=== PATIENT | female | born 1940 | race Caucasian/White ===

== ENCOUNTER 2017-01-30 14:39 | Emergency (ER) | payer OTHER ==
[~2017-01-30] VITALS: Ht 160 cm; Wt 111.4 kg
[~2017-01-30 14:39] MED LIST: ASPIRIN81 M2 PO; BENAZEPRIL HCL; GLYBURIDE PO; HYDROCHLOROTH12.5 M3 PO; LOVASTATIN; NOVOLIN N100 UNITS/ SC
[2017-01-30] MEDS ORDERED: FUROSEMIDE20 MG PO (15:11)
[2017-01-30] MEDS ORDERED: BENAZEPRIL HCL40 MG PO (15:12)
[2017-01-30] MEDS ORDERED: LOVASTATIN40 MG PO (15:12)
[2017-01-30] MEDS ORDERED: TOUJEO SOL300 UNIT/1 SC (15:13)
[2017-01-30 15:53] LABS: ADD MIUA? NO; BILIRUBIN NEGATIVE; BLOOD NEGATIVE; COLOR STRAW ((YELLOW)); GLUCOSE (STRIP) >=500; KETONES 20; LEUKOCYTES NEGATIVE; NITRITE NEGATIVE; PROTEIN (STRIP) NEGATIVE; SPECIFIC GRAVITY 1.023 (1.000-1.030); UROBILINOGEN 0.2 MG/DL (0.2-1.0)
[2017-01-30 16:13] LABS: HEMATOCRIT 43.5 % (36.0-46.0); MCH 29.5 PG (29.0-34.0); MCHC 33.3 G/DL (30.0-36.0); MCV 88.4 FL (83-99); MEAN PLAT.VOLUME 11.7 uM^3 (9.5-12.4); PLATELET COUNT 174 K/uL (156-360); RBC DIS.WIDTH-CV 12.2 % (11.8-14.6); RBC DIS.WIDTH-SD 39.9 % (39-53); RED BLOOD COUNT 4.92 M/uL (3.80-5.20); WHITE BLOOD COUNT 6.9 K/uL (4.1-10.2)
[2017-01-30 16:19] LABS: CARBON DIOXIDE (BICARBONATE) 25.7 MEQ/L (20-31)
[2017-01-30 16:24] LABS: CHLORIDE 97 mEq/L (99-109); POTASSIUM 4.3 mEq/L (3.7-5.4); SODIUM 132 mEq/L (136-147)
[2017-01-30 16:27] LABS: ANION GAP 15 MEQ/L (2-14)
[2017-01-30 16:28] LABS: TOTAL BILIRUBIN 0.4 mg/dL (0.0-1.0)
[2017-01-30 16:29] LABS: ALKALINE PHOSPHATASE 71 IU/L (3-129)
[2017-01-30 16:30] LABS: GFR ESTIMATE (CALCULATED) 42 mL/min/
[2017-01-30 16:31] LABS: UREA NITROGEN (BUN) 30 mg/dL (9-23)
[2017-01-30 16:37] LABS: GLUCOSE 577 mg/dL (70-99)
[2017-01-30 17:47] LABS: POINT-OF-CARE METER ID UU13113778
[2017-01-30 18:35] VITALS: BP 172/71
[2017-01-31 08:04] LABS: POINT-OF-CARE METER ID UU13113778
== END 2017-01-30 18:41 | disposition home or self-care (01) ==
LOC: EME 14:39
PROVIDERS: Nurse Practitioner Family
DX: E11.65 Type 2 diabetes mellitus with hyperglycemia (principal); E78.5 Hyperlipidemia, unspecified; I10 Essential (primary) hypertension; Z79.4 Long term (current) use of insulin; Z79.84 Long term (current) use of oral hypoglycemic drugs; Z79.82 Long term (current) use of aspirin
CPT/HCPCS: 80053; 81003; 82010; 82803; 82948; 85027; 99281; 99284; J7030

== ENCOUNTER 2018-03-13 00:54 | Observation (INO) | payer OTHER ==
[~2018-03-13] VITALS: Ht 157.5 cm; Wt 120.6 kg
[~2018-03-13 00:54] MED LIST changes: -BENAZEPRIL HCL; +BENAZEPRIL HCL40 MG PO; +FUROSEMIDE20 MG PO; +LOTENSIN40 MG PO; +LOVASTATIN40 MG PO; -NOVOLIN N100 UNITS/ SC; +NOVOLIN,HU100 UNITS/ SC; +TOUJEO SOL300 UNIT/1 SC
[2018-03-13 01:50] LABS: HEMATOCRIT 41.3 % (36.0-46.0); HEMOGLOBIN 13.7 G/DL (11.9-15.5); MCH 30.2 PG (29.0-34.0); MCHC 33.2 G/DL (30.0-36.0); PLATELET COUNT 196 K/uL (156-360); RBC DIS.WIDTH-CV 12.8 % (11.8-14.6); RBC DIS.WIDTH-SD 42.5 % (39-53); RED BLOOD COUNT 4.54 M/uL (3.80-5.20); WHITE BLOOD COUNT 9.5 K/uL (4.1-10.2)
[2018-03-13 02:00] LABS: CHLORIDE 100 mEq/L (99-109); SODIUM 137 mEq/L (136-147)
[2018-03-13 02:02] LABS: GLUCOSE 236 mg/dL (70-99); TOTAL PROTEIN 7.3 g/dL (6.4-8.3)
[2018-03-13 02:04] LABS: TOTAL BILIRUBIN 0.4 mg/dL (0.0-1.0)
[2018-03-13 02:06] LABS: ALKALINE PHOSPHATASE 78 IU/L (3-129); CREATININE 0.9 mg/dL (0.6-1.3); GFR ESTIMATE (CALCULATED) > 59 mL/min/
[2018-03-13 02:07] LABS: AST (GOT) 18 IU/L (2-34); UREA NITROGEN (BUN) 16 mg/dL (9-23)
[2018-03-13 02:09] LABS: ALT (GPT) 14 IU/L (3-49)
[2018-03-13 05:10] LABS: APPEARANCE SL.HAZY ((CLEAR)); BILIRUBIN NEGATIVE; BLOOD SMALL; COLOR YELLOW ((YELLOW)); GLUCOSE (STRIP) >=500; KETONES 5; LEUKOCYTES LARGE; NITRITE POSITIVE; PROTEIN (STRIP) 30; SPECIFIC GRAVITY 1.036 (1.000-1.030); UROBILINOGEN 0.2 MG/DL (0.2-1.0)
[2018-03-13 05:32] LABS: BACTERIA 3+ /HPF; EPITHELIAL CELLS RARE /HPF; MUCUS NONE SEEN /LPF; RED BLOOD CELLS 0-5 /HPF (0-5); UCUL ADDED? YES; WHITE BLOOD CELLS TNTC /HPF (0-5)
[2018-03-13 06:27] VITALS: BP 158/74
[2018-03-13 07:52] VITALS: BP 169/72
[2018-03-13] MEDS ORDERED: TOPROL XL25 MG PO (10:07)
[2018-03-13] MEDS ORDERED: NOVOLIN,HU100 UNITS/ SC (10:07)
[2018-03-13] MEDS ORDERED: FISH OIL 500 M1 EAC3 PO (10:08)
[2018-03-13] MEDS ORDERED: VITAMIN D31000 UNIT PO (10:08)
[2018-03-13] MEDS ORDERED: ULTRAM50 MG PO (10:08)
[2018-03-13] MEDS ORDERED: LIPITOR40 MG PO (10:08)
[2018-03-13] MEDS ORDERED: ADVIL200 MG PO (10:09)
[2018-03-13] MEDS ORDERED: COQ-10100 MG PO (10:09)
[2018-03-13 11:29] VITALS: BP 143/64
[2018-03-13] MEDS ORDERED: CEFTIN500 MG PO (13:54)
== END 2018-03-13 14:44 | disposition home or self-care (01) ==
LOC: EME 00:54 → EDOF 04:55 → ENRESERV 05:01 → 4SOUTH 06:14
PROVIDERS: Hospitalist; Physician Assistant
DX: M54.5 Low back pain (principal); M25.561 Pain in right knee; M79.604 Pain in right leg; N39.0 Urinary tract infection, site not specified; E66.9 Obesity, unspecified; Z68.42 Body mass index [BMI] 45.0-49.9, adult; E11.65 Type 2 diabetes mellitus with hyperglycemia; I10 Essential (primary) hypertension; E78.00 Pure hypercholesterolemia, unspecified; M48.00 Spinal stenosis, site unspecified; Z79.82 Long term (current) use of aspirin; Z79.4 Long term (current) use of insulin
CPT/HCPCS: 74174; 80053; 81003; 82948; 85027; 87077; 87086; 87186; 99281; 99284; G0378; G8978 GP CH; G8979 GP CH; G8980 GP CH; J0360; J0696; J1170; J1650; J1815; J1885; J2405; J2765; J3010; J7030